=== PATIENT | female | born 1970 | race Caucasian/White ===

== ENCOUNTER 2017-10-22 22:23 | Emergency (ER) | payer BC, MEDICARE ==
--- NOTE | 2017-10-22 23:09 | EDM.PDOC ---
ED HPI GENERAL MEDICAL PROBLEM - General Chief Complaint: Cardiovascular Problem Stated Complaint: HBP Time Seen by Provider: 10/22/17 22:30 Source of Information: Reports: Patient, Family History Limitations: Reports: No Limitations - History of Present Illness INITIAL COMMENTS - FREE TEXT/NARRATIVE: c/o inc'd BP from [place], here with sister who is also from [place], BP 207/106 and 200/113 on home cuff, unable to reach her PCP and come to ED for recommendations last saw PCP 6m ago dx with HTN 1y ago, on verapamil ER 24 hour 180 mg daily and losartan 100 mg daily x 1y, no change in meds in past yr, had been on lisinopril and than changed to losartan d/t cough incinerator attendant comes weekly and checks her BP and sets up her meds for the next week , pt has been compliant with meds pt does not know what her BP was when incinerator attendant came yesterday pt lives alone, on disability, h/o depression and anxiety no prior CV or renal problems has a larger cuff at home BP 166/89 here no other sxs all questions answered from pt and sister - Related Data Allergies Allergy/AdvReac Type Severity Reaction Status Date / Time amoxicillin Allergy Hives Verified 10/22/17 22:34 Home Meds: Home Meds Albuterol [Proventil HFA] 2 puff INH Q4H PRN 10/22/17 [History] Brexpiprazole [Rexulti] 3 mg PO DAILY 10/22/17 [History] Cyanocobalamin (Vitamin B-12) [B-12] 1,000 mcg PO ASDIRECTED 10/22/17 [History] Diclofenac Sodium [Voltaren] 50 mg PO ASDIRECTED 10/22/17 [History] Ferrous Sulfate 325 mg PO DAILY 10/22/17 [History] Losartan [Cozaar] 100 mg PO DAILY 10/22/17 [History] Losartan [Cozaar] 100 mg PO DAILY 10/22/17 [History] Omeprazole [priLOSEC OTC] 20 mg PO BID 10/22/17 [History] Prazosin HCl [Prazosin] 2 mg PO BEDTIME 10/22/17 [History] SUMAtriptan Succinate [Imitrex] 50 mg PO ASDIRECTED PRN 10/22/17 [History] Verapamil HCl [Verapamil Sr] 180 mg pe PO DAILY 10/22/17 [History] Vortioxetine Hydrobromide [Brintellix] 20 mg PO ASDIRECTED 10/22/17 [History] Zolpidem [Ambien CR] 12.5 mg PO BEDTIME 10/22/17 [History] hydrOXYzine HCl [Atarax] 25 mg PO ASDIRECTED PRN 10/22/17 [History] traZODone HCl [Trazodone HCl] 300 mg PO ASDIRECTED 10/22/17 [History] ED ROS GENERAL - Review of Systems Review Of Systems: See Below Constitutional: Reports: No Symptoms HEENT: Reports: No Symptoms Respiratory: Reports: No Symptoms Cardiovascular: Reports: No Symptoms Endocrine: Reports: No Symptoms GI/Abdominal: Reports: No Symptoms : Reports: No Symptoms Musculoskeletal: Reports: No Symptoms Skin: Reports: No Symptoms Neurological: Reports: No Symptoms Psychiatric: Reports: No Symptoms Hematologic/Lymphatic: Reports: No Symptoms Immunologic: Reports: No Symptoms ED EXAM, GENERAL - Physical Exam Exam: See Below Exam Limited By: No Limitations General Appearance: Alert, WD/WN, No Apparent Distress, Anxious Eye Exam: Bilateral Eye: PERRL Ears: Normal External Exam Nose: Normal Inspection, Normal Mucosa, No Blood Throat/Mouth: Normal Inspection, Normal Lips, Normal Teeth, Normal Gums, Normal Oropharynx, Normal Voice, No Airway Compromise Head: Atraumatic, Normocephalic Neck: Normal Inspection, Supple, Non-Tender, Full Range of Motion. No: Thyromegaly Respiratory/Chest: No Respiratory Distress, Lungs Clear, Normal Breath Sounds, No Accessory Muscle Use, Chest Non-Tender Cardiovascular: Regular Rate, Rhythm, No Edema, No Gallop, No JVD, No Murmur, No Rub Extremities: Normal Inspection, Other (trace edema b/l, symmetric) Neurological: Alert, Oriented, CN II-XII Intact, Normal Cognition, No Motor/ Sensory Deficits Psychiatric: Anxious Skin Exam: Warm, Dry, Intact, Normal Color, No Rash Lymphatic: No Adenopathy Departure - Departure Time of Disposition: 23:14 Disposition: Home, Self-Care 01 Condition: Good Clinical Impression: Elevated blood pressure reading Instructions: Managing Your Hypertension Referrals: PCP,Not In Area [Primary Care Provider] - Additional Instructions: Continue your current meds. Record your blood pressure daily. Sit for 3-5 minutes prior to checking your blood pressure. Obtain a copy of recent BP readings from incinerator attendant. See your physician in 1 week to review BP readings. Continue your current meds. Call your Physician or Return to Emergency Department if: * Your condition worsens in any way. * You develop fever greater than 100.4. * You have vomitting that does not stop with medications. * You have pain that is not controlled with medications.
== END 2017-10-22 23:18 | disposition home or self-care (01) ==
LOC: FB.ED 22:23
DX: I10 Essential (primary) hypertension (principal); Z79.899 Other long term (current) drug therapy; Z88.1 Allergy status to other antibiotic agents
CPT/HCPCS: 99283